=== PATIENT | male | born 1955 | race Caucasian/White ===

== ENCOUNTER 2023-05-20 11:08 | Observation (INO) | payer MEDICARE, SELFPAY ==
[2023-05-20] VITALS (25 sets, daily range): BP systolic 125–180; BP diastolic 60–99; PULSE 55–78; RESP 13–19; TEMP 36.6–36.7; O2SAT 93–99; BMI 29.2; BMI 29.8
--- NOTE | 2023-05-20 11:06 | ECG_ITS ---
APPROVED REPORT Exam: Resting ECG HR:56 bpm ECG Measurements Heart Rate 56 AXES VA 196 P 36 QRSd 84 QRS 28 QT 399 T 118 QTc 390 Conclusion SINUS BRADYCARDIA NONSPECIFIC T-WAVE ABNORMALITY ABNORMAL ECG UNCONFIRMED REPORT Electronically signed by : John Chappell MD 05/20/2023 19:37:25
--- NOTE | 2023-05-20 11:09 | PC.NURSE ---
Dr. Barraza at BS for pt eval
--- NOTE | 2023-05-20 11:11 | XR_ITS ---
FINAL REPORT CLINICAL HISTORY: CP smoker COMPARISON: None FINDINGS: A single portable view of the chest was obtained. The heart size and pulmonary vascularity are within normal limits. The mediastinum is within normal limits. No acute pulmonary abnormality is identified. The bony thorax is intact. IMPRESSION: No active cardiopulmonary disease. Reviewed, Interpreted and Dictated by Sukhwinder Alfred III, MD Transcribed by Jolie Cardona Authenticated and [facility]
--- NOTE | 2023-05-20 11:13 | HMH.EDGENADL ---
Discharge Plan Disposition Patient Disposition: Admitted Chief Complaint: Chest Pain Clinical Impressions Clinical Impression: Angina pectoris associated with type 2 diabetes mellitus Discharge ED Provider: Brian Barraza General Adult HPI General Chief complaint: Chest Pain Stated complaint: CP Time Seen by Provider: 05/20/23 11:11 History of Present Illness HPI narrative: Patient is a 67-year-old male with past medical history of hypertension, dxo-[id number] diabetes, ACS status post stenting on dual antiplatelet therapy who presents emergency department for evaluation of chest pain. Onset was acute, over the last 24 hours, waxing waning, substernal radiating up into his neck. No other acute complaints at this time. Related Data Home Medications Medication Instructions Recorded Confirmed atorvastatin 20 mg tablet (Lipitor) 20 mg PO HS 05/20/23 05/20/23 glimepiride 4 mg tablet 4 mg PO DAILY Diabetes 05/20/23 05/20/23 metformin 500 mg tablet 1,000 mg PO BID Diabetes 05/20/23 05/20/23 Allergies Allergy/AdvReac Type Severity Reaction Status Date / Time No Known Allergies Allergy Verified 05/20/23 11:09 [facility] Disclaimer: The information contained in this section may have been updated after the patient was seen, as this information can be updated by other users. Social History (Updated 05/20/23 @ 14:48 by WILDA Palma) Smoking Status: Former smoker alcohol intake: current current occupational status: employed Travel in the last 8 weeks: Inside the [place] ROS Obtained: Yes Systems reviewed as appropriate & no additional complaints except as documented Physical Exam General General appearance: alert and in no apparent distress Head Head exam: atraumatic and normocephalic Eye Eye exam: Present PERRL and EOMI ENT ENT exam: Present mucous membranes moist Neck Neck exam: Present normal inspection Chest Chest inspection: Present normal inspection and symmetric chest wall rise Respiratory Respiratory exam: Present normal lung sounds bilaterally; Absent respiratory distress Cardiovascular Cardiovascular exam: Present regular rate, normal rhythm and other (No pitting edema BLE) Abdominal Exam Abdominal exam: Present soft; Absent tenderness Extremities Exam Extremities exam: Present normal inspection Neurological Exam Neurological exam: Present alert Psychiatric Psychiatric exam: Present normal affect Skin Skin exam: Present warm and dry Medical Decision Making Tuan Inquiry Pt receiving controlled substance: No Vital Signs: 05/20/23 11:08 05/20/23 11:30 05/20/23 12:00 Temperature 97.8 F Temperature Source Oral Pulse Rate 59 L 59 L Pulse Rate [Right] 57 L Respiratory Rate 19 13 19 Blood Pressure 145/92 H 144/93 H Blood Pressure [Right Arm] 145/92 H Blood Pressure Mean Blood Pressure Mean [Right Arm] 109 Blood Pressure Source [Right Arm] Automatic Cuff 02 Sat by Pulse Oximetry 98 97 96 Oxygen Delivery Method Room Air 05/20/23 12:31 05/20/23 12:50 05/20/23 13:34 Temperature Temperature Source Pulse Rate 63 55 L Pulse Rate [Right] Respiratory Rate Blood Pressure 165/71 H 131/88 126/77 Blood Pressure [Right Arm] Blood Pressure Mean 90 Blood Pressure Mean [Right Arm] Blood Pressure Source [Right Arm] 02 Sat by Pulse Oximetry 96 96 94 L Oxygen Delivery Method Room Air 05/20/23 14:38 05/20/23 14:01 Temperature 98.0 F Temperature Source Pulse Rate 78 62 Pulse Rate [Right] Respiratory Rate 18 Blood Pressure 130/82 133/99 H Blood Pressure [Right Arm] Blood Pressure Mean 110 Blood Pressure Mean [Right Arm] Blood Pressure Source [Right Arm] 02 Sat by Pulse Oximetry 96 Oxygen Delivery Method Room Air Lab Data Lab Results 05/20/23 11:27: WBC 5.5, RBC 4.74, Hgb 14.2, Hct 43.0, MCV 90.8, MCH 30.0, MCHC 33.0, RDW 13.9, Plt Count 249, MPV 8.2, Neut % (Auto) 60.1, Lymph % (Auto) 33
--- NOTE | 2023-05-20 11:37 | PC.NURSE ---
RAD at for CXR
[2023-05-20 12:24] LABS: Basophils % 0.5 % (0.1-2.0); Eosinophils # 0.1 K/mm3 (0.0-0.4); Eosinophils % 0.8 % (0.1-12.0); Hemoglobin 14.2 g/dL (14.1-18.0); Lymphocytes # 1.9 K/mm3 (0.7-4.5); Lymphocytes % 33.8 % (10-50); Mean Corpuscular Volume 90.8 fl (80-94); Mean Platelet Volume 8.2 fl (7.4-10.4); Monocytes # 0.3 K/mm3 (0.1-1.0); Monocytes % 4.7 % (1.7-9.3); Neutrophils # 3.3 K/mm3 (1.8-7.8); Neutrophils % 60.1 % (37.0-80.0); Platelet Count 249 K/mm3 (142-424); Red Blood Count 4.74 M/mm3 (4.60-6.20); Red Cell Distribution Width 13.9 % (11.5-17.5); White Blood Count 5.5 K/mm3 (4.8-10.8)
[2023-05-20 12:31] LABS: Chloride 103 mmol/L (98-107); Potassium 3.9 mmoL/L (3.5-5.1); Sodium 135 mmol/L (136-145)
[2023-05-20 12:33] LABS: Alanine Aminotransferase 24 U/L (12-78); Aspartate Amino Transferase 29 U/L (17-59); Blood Urea Nitrogen 16 mg/dl (9-20); Creatinine Clearance Estimated 94 mL/min (50-200); Estimated Glomerular Filt Rate 112 ml/min (>60); GFR (African American) 135 ML/MIN (>60)
[2023-05-20 12:34] LABS: Albumin/Globulin Ratio 1.4 (1.1-1.8); Alkaline Phosphatase 99 U/L (38-126); Anion Gap 9.9 mEq/L (5-15); Bilirubin,Total 0.5 mg/dl (0.2-1.3); Carbon Dioxide 26 mmol/L (22.0-30.0); Globulin 2.9 g/dL (1.3-3.2); Glucose 279 mg/dl (74-100); Total Protein,Serum 6.9 g/dl (6.3-8.2)
[2023-05-20 12:53] LABS: Troponin I < 0.01 ng/ml (0.00-0.034)
--- NOTE | 2023-05-20 13:13 | PC.NURSE ---
s/w Cha @ [facility], she will let Omer ASTUDILLO know of the consult.
--- NOTE | 2023-05-20 13:52 | PC.NURSE ---
JACK GARCIA WITH CARDIOLOGY AT BEDSIDE
--- NOTE | 2023-05-20 14:15 | PC.NURSE ---
Nicole ASTUDILLO s/w Dr. Velasquez and he will cath him today.
--- NOTE | 2023-05-20 14:18 | IR_ITS ---
APPROVED REPORT Patient Location: Emergent Linting Machine Operator: ZOE Carmona RT (R) PROCEDURES Left heart catheterization Left ventriculogram Selective coronary angiogram Drug-eluting stent deployment to the proximal LAD INDICATION Unstable angina, Coronary artery disease, Informed consent was obtained prior to the procedure. COMPLICATIONS NONE Estimated Blood Loss: LESS THAN 10 ML TECHNIQUE One percent lidocaine used to anesthetize the right anterior aspect of the wrist. The right radial artery was accessed via the Seldinger technique. A 6 [place] Island[place] sheath was placed in the right radial artery. 2.5 mg of Verapamil, 800 mcg of nitroglycerin, 1mg Lidocaine and 5000 U Heparin were given through the arterial sheath. The papa catheter was also used to perform left heart catheterization, left ventriculogram and selective coronary angiogram. At the end of the procedure therapeutic Was administered giving a therapeutic ACT and the guide catheter was placed in left main artery followed by Choice PT extra-support wire. A 2.75 x 15 mm [place] frontier stent was deployed at 20 nicole reducing the critical stenosis to 0%. Although there was jailing of the first diagonal artery both the LAD and diagonal artery maintain KHRIS-3 flow at the end of the procedure. At the end the procedure the apparatus was removed the sheath was removed and hemostasis was achieved using TR banding patient was transferred to the postop holding in stable condition ANGIOGRAPHIC RESULTS The left main artery Has an ostial 20% stenosis and a distal 20% stenosis The left anterior descending artery Has an ostial 30% stenosis followed by a concentric 90% stenosis immediately proximal to the first diagonal artery there are additional 30% mid vessel stenoses with a 40% stenosis distal to the second diagonal artery The circumflex artery Is nondominant yet still large and has diffuse 20 to 30% stenoses The right coronary artery Is a large dominant vessel and has proximal 30% stenoses mid vessel 20% stenoses distal 30% stenoses The MONTEZ ventriculogram reveals Normal 65% The left ventricular end-diastolic pressure 10 to 15 mmHg IMPRESSION Critical proximal LAD disease as described above Successful stenting the proximal ID critical disease reduced to 0% with 1 drug-eluting stent Diffuse mild to moderate disease as described above Normal ejection fraction Normal left ventricular end-diastolic pressure PLAN 1. Effient 10 mg daily plus aspirin 81 mg daily 2. LDL less than 55 to be achieved with high intensity statin 3. Avoidance of tobacco product 4. Risk factor modification 5. Cardiac rehabilitation Electronically signed by : Asad Velasquez MD 05/20/2023 15:13:54
--- NOTE | 2023-05-20 14:26 | PC.NURSE ---
pt was in a gown but having pt take pants, underwear and shoes was unable to shave bc valentino from inc[employer]ator plant laborer was here to take pt but aware pt was not shaved
--- NOTE | 2023-05-20 14:27 | PC.NURSE ---
[facility] [employer] Charge Hand here to get pt for heart cath, taken via wheelchair, with going to waiting room for laboratory director
--- NOTE | 2023-05-20 14:29 | PC.NURSE ---
Dr. Barraza s/w Dr. Carvajal for admission
--- NOTE | 2023-05-20 14:35 | PC.NURSE ---
CARE MANAGEMENT NOTIFIED OF ADMISSION
--- NOTE | 2023-05-20 14:37 | EXP.CARD.CON ---
History of Present Illness History of Present Illness Consult date: 05/20/23 Requesting physician: Gopi Carvajal Consult reason: chest pain Chief complaint: Angina pectoris Additional Medical History:: 1. CAD A. History of pericarditis, age 20 B. NV with subsequent stenting, 2019 2. Diabetes mellitus 3. Elevated blood pressure 4. Hyperlipidemia History of present illness: 67-year-old male presented to the emergency department for complaint of chest heaviness and pressure with radiation into the neck over the last 2 months that has progressively gotten worse. Symptoms have begun to limit his activity. He also describes the feeling as if an elephant is sitting on his chest. This is similar to what he felt 3 years ago when he had an NV and subsequent coronary stenting. He has not had any further cardiac follow-up since then. He does continue to take an aspirin but is not on any beta-godfrey or statin therapy. EKG today shows sinus rhythm with nonspecific ST-T abnormalities in the inferolateral leads. Initial troponin is normal [facility] Disclaimer: The information contained in this section may have been updated after the patient was seen, as this information can be updated by other users. Social History Smoking Status: Former smoker alcohol intake: current current occupational status: employed Travel in the last 8 weeks: Inside the [place] Review of Systems Review of Systems Review of systems:: pertinent systems reviewed and negative unless documented below *Cardiovascular Cardiovascular: Reports chest pain and Reports dyspnea on exertion *Respiratory Respiratory: Reports dyspnea on exertion Exam Data for Last 24 hours Vital signs and Labs for Last 24 Hours: Temp Pulse Resp BP Pulse Ox O2 Del Method 97.8 F 55 L 19 126/77 94 L Room Air 05/20/23 11:08 05/20/23 12:50 05/20/23 12:00 05/20/23 13:34 05/20/23 13:34 05/20/23 13:34 Laboratory Results - last 24 hr 05/20/23 11:27: WBC 5.5, RBC 4.74, Hgb 14.2, Hct 43.0, MCV 90.8, MCH 30.0, MCHC 33.0, RDW 13.9, Plt Count 249, MPV 8.2, Neut % (Auto) 60.1, Lymph % (Auto) 33.8, [place] % (Auto) 4.7, Eos % (Auto) 0.8, Baso % (Auto) 0.5, Neut # (Auto) 3.3, Lymph # (Auto) 1.9, [place] # (Auto) 0.3, Eos # (Auto) 0.1, Baso # (Auto) 0.0, Sodium 135 L, Potassium 3.9, Chloride 103, Carbon Dioxide 26, Anion Gap 9.9, BUN 16, Creatinine 0.70, Estimated Creat Clear 94, Estimated GFR 112, Est GFR ( Amer) 135, Glucose 279 H, Calcium 9.0, Total Bilirubin 0.5, AST 29, ALT 24, Alkaline Phosphatase 99, Troponin I < 0.01, Total Protein 6.9, Albumin 4.0, Globulin 2.9, Albumin/Globulin Ratio 1.4 I & O for Last 24 hours: Intake & Output 05/18/23 05/19/23 05/20/23 05/21/23 11:59 11:59 11:59 11:59 Weight 210 lb Constitutional Constitutional: no acute distress *Routine Respiratory Exam Respiratory: Present CTA bilaterally *Routine Cardiovascular Exam Cardiovascular: Present RRR and murmur; Absent gallop or rubs *Routine Extremities Exam Extremities: Absent cyanosis, clubbing or edema *Routine Neurological Exam Neurological: Present alert, oriented X3 and CN II-XII intact Meds Home Medications and Allergies Home Medications Medication Instructions Recorded Confirmed Type atorvastatin 20 mg tablet (Lipitor) 20 mg PO HS 05/20/23 05/20/23 History glimepiride 4 mg tablet 4 mg PO DAILY Diabetes 05/20/23 05/20/23 History metformin 500 mg tablet 1,000 mg PO BID Diabetes 05/20/23 05/20/23 History New Prescriptions to Start Prescriptions: Allergies Allergy/AdvReac Type Severity Reaction Status Date / Time No Known Allergies Allergy Verified 05/20/23 11:09 Assessment and Plan *Assessment and plan (1) Angina pectoris associated with type 2 diabetes mellitus: Status: Acute Category: Medical Code(s): E11.59 - Type 2 diabetes mellitus with other circulatory complications; I20.9 - Angina pectoris, unspecified (2) Di
[2023-05-20 15:01] LABS: Chol/HDL Ratio 6.3 (1-3.5); Cholesterol 245 mg/dl (140-200); HDL Cholesterol 39 mg/dl (40-60); Triglycerides 302 mg/dl (30-150); VLDL Cholesterol 60 mg/dL (0-40)
--- NOTE | 2023-05-20 15:13 | HMH.PHAINT1 ---
Pharmacy Intervention Comments: MEDICATION RECONCILIATION COMPLETED ON PATIENT USING EXTERNAL FILL HISTORY FROM PHARMACY AND LIST FROM CARDIOLOGY OFFICE. -GIRMA TORRES, JOSEED
[2023-05-20 15:18] LABS: CATHL Activated Clotting Time 220 SEC (74-125)
--- NOTE | 2023-05-20 15:45 | PC.NURSE ---
arrived to floor by stretcher from public works laborer at 15:32
--- NOTE | 2023-05-20 15:52 | EXP.HP ---
History of Present Illness *Admission Date: 05/20/23 *Reason for visit:: chest pain *History of present illness: Mr. Wright is a 67-year-old male with history of diabetes, previous AK with 2 stents, who presents with worsening dyspnea with exertion over the past few weeks. Symptoms became acutely worse with development of chest pain over the past 24 to 48 hours. Radiating to his back. In the ER, chest x-ray was unremarkable. EKG with no ST elevation. Serial troponin negative. However given the unstable character of his chest pain, history of CAD, cardiology recommended evaluation. In the setting of high risk chest pain, cardiology recommended left heart cath. Patient was taken to the Card Cutter Helper where critical proximal LAD disease was identified and intervened upon. Patient has remained on room air. Medicine consulted for admission. Taken to [facility] with the following findings: IMPRESSION Critical proximal LAD disease. Successful stenting the proximal LAD critical disease reduced to 0% with 1 drug-eluting stent. Diffuse mild to moderate disease as described above Normal ejection fraction Normal left ventricular end-diastolic pressure After arrival to the floor, patient states he feels better. Denies any pain or shortness of breath. Is just fatigued at this time. Family at bedside and updated of plan. [facility] Disclaimer: The information contained in this section may have been updated after the patient was seen, as this information can be updated by other users. Medical History Diabetes mellitus, type 2 Hyperlipidemia Hypertension Family History No significant family history Social History Smoking Status: Current every day smoker alcohol intake: current current occupational status: employed Travel in the last 8 weeks: [place] the [place] Review of Systems Review of Systems Review of systems (narrative): 14 point review of systems performed, pertinent positives and negatives as per HPI Meds Home Medications and Allergies Home Medications Medication Instructions Recorded Confirmed Type aspirin 81 mg chewable tablet 81 mg PO DAILY Heart Health 05/20/23 05/20/23 History glimepiride 4 mg tablet 4 mg PO DAILY Diabetes 05/20/23 05/20/23 History metformin 500 mg tablet 1,000 mg PO BID Diabetes 05/20/23 05/20/23 History New Prescriptions to Start Prescriptions: Allergies Allergy/AdvReac Type Severity Reaction Status Date / Time No Known Allergies Allergy Verified 05/20/23 15:48 Exam Data for Last 24 hours Vital signs and Labs for Last 24 Hours: Temp Pulse Resp BP Pulse Ox O2 Del Method 98.0 F 60 18 144/81 H 95 Room Air 05/20/23 14:38 05/20/23 15:29 05/20/23 15:29 05/20/23 15:29 05/20/23 15:29 05/20/23 15:25 Laboratory Results - last 24 hr 05/20/23 11:27: WBC 5.5, RBC 4.74, Hgb 14.2, Hct 43.0, MCV 90.8, MCH 30.0, MCHC 33.0, RDW 13.9, Plt Count 249, MPV 8.2, Neut % (Auto) 60.1, Lymph % (Auto) 33.8, [place] % (Auto) 4.7, Eos % (Auto) 0.8, Baso % (Auto) 0.5, Neut # (Auto) 3.3, Lymph # (Auto) 1.9, [place] # (Auto) 0.3, Eos # (Auto) 0.1, Baso # (Auto) 0.0, Sodium 135 L, Potassium 3.9, Chloride 103, Carbon Dioxide 26, Anion Gap 9.9, BUN 16, Creatinine 0.70, Estimated Creat Clear 94, Estimated GFR 112, Est GFR ( Amer) 135, Glucose 279 H, Calcium 9.0, Total Bilirubin 0.5, AST 29, ALT 24, Alkaline Phosphatase 99, Troponin I < 0.01, Total Protein 6.9, Albumin 4.0, Globulin 2.9, Albumin/Globulin Ratio 1.4, Triglycerides 302 H, Cholesterol 245 H, VLDL Cholesterol 60 H, HDL Cholesterol 39 L, Cholesterol/HDL Ratio 6.3 H 05/20/23 14:45: Activated Clotting Time 220 H* I & O for Last 24 hours: Intake & Output 05/17/23 05/18/23 05/19/23 05/20/23 23:59 23:59 23:59 23:59 Weight 91.654 kg Constitutional Constitutional: no acute dis
[2023-05-20 16:07] LABS: Hemoglobin A1C 8.6 % (4.0-6.0)
[2023-05-20 16:59] LABS: POC Glucose,Bedside 274 (70-110)
[2023-05-20 20:48] LABS: POC Glucose,Bedside 271 (70-110)
[2023-05-21] VITALS: BP 142/79; PULSE 60; RESP 18; TEMP 37.2; O2SAT 97
[2023-05-21 04:00] VITALS: BP 135/80; PULSE 70; RESP 16; TEMP 36.9; O2SAT 97; BMI 30.7
[2023-05-21 06:01] LABS: POC Glucose,Bedside 245 (70-110)
--- NOTE | 2023-05-21 06:13 | PC.NURSE ---
Patient rested well this shift. Vitals WNL, right radial dressing clean dry and intact. No complaints this shift. Call green and personal items in reach. POC ongoing.
[2023-05-21 06:35] LABS: Basophils % 0.4 % (0.1-2.0); Eosinophils # 0.1 K/mm3 (0.0-0.4); Eosinophils % 0.7 % (0.1-12.0); Hemoglobin 13.8 g/dL (14.1-18.0); Lymphocytes # 2.1 K/mm3 (0.7-4.5); Lymphocytes % 32.1 % (10-50); Mean Corpuscular HGB Conc 32.2 g/dL (31.8-35.4); Mean Corpuscular Hemoglobin 29.8 pg (27.0-31.2); Mean Corpuscular Volume 92.6 fl (80-94); Mean Platelet Volume 8.1 fl (7.4-10.4); Monocytes # 0.3 K/mm3 (0.1-1.0); Monocytes % 4.9 % (1.7-9.3); Neutrophils # 4.1 K/mm3 (1.8-7.8); Neutrophils % 61.9 % (37.0-80.0); Platelet Count 222 K/mm3 (142-424); Red Blood Count 4.64 M/mm3 (4.60-6.20); Red Cell Distribution Width 13.9 % (11.5-17.5); White Blood Count 6.6 K/mm3 (4.8-10.8)
[2023-05-21 06:46] LABS: Chloride 104 mmol/L (98-107)
[2023-05-21 06:47] LABS: Potassium 4.3 mmoL/L (3.5-5.1); Sodium 136 mmol/L (136-145)
[2023-05-21 06:49] LABS: Alanine Aminotransferase 22 U/L (12-78); Alkaline Phosphatase 80 U/L (38-126); Anion Gap 10.3 mEq/L (5-15); Aspartate Amino Transferase 25 U/L (17-59); Bilirubin,Total 0.4 mg/dl (0.2-1.3); Blood Urea Nitrogen 13 mg/dl (9-20); Carbon Dioxide 26 mmol/L (22.0-30.0); Creatinine Clearance Estimated 93 mL/min (50-200); Estimated Glomerular Filt Rate 96 ml/min (>60); GFR (African American) 116 ML/MIN (>60)
[2023-05-21 06:50] LABS: Albumin Level 3.5 g/dl (3.5-5.0); Albumin/Globulin Ratio 1.4 (1.1-1.8); Calcium 8.7 mg/dl (8.4-10.2); Globulin 2.5 g/dL (1.3-3.2); Glucose 228 mg/dl (74-100); Magnesium 1.7 mg/dl (1.6-2.3)
--- NOTE | 2023-05-21 07:39 | EXP.CARD.PN ---
Subjective Subjective Date: 05/21/23 Time: 07:39 Principal diagnosis: Unstable angina Interval history: 67 yo male in bed in NAD. Feels great. Discussed lifestyle changes/dietary changes. Exam Data for Last 24 hours Vital signs and Labs for Last 24 Hours: Temp Pulse Resp BP Pulse Ox O2 Del Method 98.5 F 70 16 135/80 97 Room Air 05/21/23 04:00 05/21/23 04:00 05/21/23 04:00 05/21/23 04:00 05/21/23 04:00 05/21/23 07:00 Laboratory Results - last 24 hr 05/20/23 11:27: WBC 5.5, RBC 4.74, Hgb 14.2, Hct 43.0, MCV 90.8, MCH 30.0, MCHC 33.0, RDW 13.9, Plt Count 249, MPV 8.2, Neut % (Auto) 60.1, Lymph % (Auto) 33.8, [place] % (Auto) 4.7, Eos % (Auto) 0.8, Baso % (Auto) 0.5, Neut # (Auto) 3.3, Lymph # (Auto) 1.9, [place] # (Auto) 0.3, Eos # (Auto) 0.1, Baso # (Auto) 0.0, Sodium 135 L, Potassium 3.9, Chloride 103, Carbon Dioxide 26, Anion Gap 9.9, BUN 16, Creatinine 0.70, Estimated Creat Clear 94, Estimated GFR 112, Est GFR ( Amer) 135, Glucose 279 H, Hemoglobin A1c 8.6 H, Calcium 9.0, Total Bilirubin 0.5, AST 29, ALT 24, Alkaline Phosphatase 99, Troponin I < 0.01, Total Protein 6.9, Albumin 4.0, Globulin 2.9, Albumin/Globulin Ratio 1.4, Triglycerides 302 H, Cholesterol 245 H, LDL Cholesterol Direct 139.40 H, VLDL Cholesterol 60 H, HDL Cholesterol 39 L, Cholesterol/HDL Ratio 6.3 H 05/20/23 14:45: Activated Clotting Time 220 H* 05/20/23 16:50: POC Glucose 274 H 05/20/23 20:37: POC Glucose 271 H 05/21/23 05:30: WBC 6.6, RBC 4.64, Hgb 13.8 L, Hct 43.0, MCV 92.6, MCH 29.8, MCHC 32.2, RDW 13.9, Plt Count 222, MPV 8.1, Neut % (Auto) 61.9, Lymph % (Auto) 32.1, [place] % (Auto) 4.9, Eos % (Auto) 0.7, Baso % (Auto) 0.4, Neut # (Auto) 4.1, Lymph # (Auto) 2.1, [place] # (Auto) 0.3, Eos # (Auto) 0.1, Baso # (Auto) 0.0, Sodium 136, Potassium 4.3, Chloride 104, Carbon Dioxide 26, Anion Gap 10.3, BUN 13, Creatinine 0.80, Estimated Creat Clear 93, Estimated GFR 96, Est GFR ( Amer) 116, Glucose 228 H, Calcium 8.7, Magnesium 1.7, Total Bilirubin 0.4, AST 25, ALT 22, Alkaline Phosphatase 80, Total Protein 6.0 L, Albumin 3.5 D, Globulin 2.5, Albumin/Globulin Ratio 1.4 05/21/23 05:54: POC Glucose 245 H I & O for Last 24 hours: Intake & Output 05/18/23 05/19/23 05/20/23 05/21/23 11:59 11:59 11:59 11:59 Intake Total 240 / 240 Output Total 100 / 100 Balance 140 / 140 Weight 210 lb 207 lb 3 oz Constitutional Constitutional: no acute distress *Routine Respiratory Exam Respiratory: Present CTA bilaterally *Routine Cardiovascular Exam Cardiovascular: Present RRR and murmur *Routine Extremities Exam Extremities: Absent edema *Routine Neurological Exam Neurological: Present alert and oriented X3 Progress Note: A&P Assessment and plan (1) Unstable angina: Status: Acute (2) CAD (coronary artery disease): Status: Acute (3) Angina pectoris associated with type 2 diabetes mellitus: Status: Acute (4) Hyperlipidemia associated with type 2 diabetes mellitus: Status: Chronic (5) Diabetes mellitus: Status: Chronic (6) History of DC (myocardial infarction): Status: Chronic (7) History of coronary angioplasty with insertion of stent: Status: Acute Assessment and Plan Assessment and Plan for All Diagnoses:: 1. Angina pectoris in a high risk patient with prior DC, coronary stenting and type 2 diabetes mellitus [facility] with subsequent ADAM to LAD DAPT with ASA and Effient Echo pending 2. Elevated blood pressure BP improved. Hold TIM or BB for now. Monitor at home. 3. Diabetes mellitus Defer to Dr. Alena Robles started 4. Hyperlipidemia LDL 139 Atorvastatin 40 mg daily started OK for discharge home. Home med recommendations: ASA 81 mg daily Effient 10 mg daily Atorvastatin 40 mg daily Jardiance 10 mg daily Hold on TIM or BB at this time (BP improved and pt has tendency to stop meds due to side effects) Follow up one week.
[2023-05-21 07:53] VITALS: BP 137/82; PULSE 63; RESP 17; TEMP 37.1; O2SAT 96
--- NOTE | 2023-05-21 09:32 | EXP.DC.SUM ---
General Admission date:: 05/20/23 Discharge date: 05/21/23 HPI HPI HPI: Mr. Wright is a 67-year-old male with history of diabetes, previous ID with 2 stents, who presents with worsening dyspnea with exertion over the past few weeks. Symptoms became acutely worse with development of chest pain over the past 24 to 48 hours. Radiating to his back. In the ER, chest x-ray was unremarkable. EKG with no ST elevation. Serial troponin negative. However given the unstable character of his chest pain, history of CAD, cardiology recommended evaluation. In the setting of high risk chest pain, cardiology recommended left heart cath. Patient was taken to the [facility] where critical proximal LAD disease was identified and intervened upon. Patient has remained on room air. Medicine consulted for admission. Taken to [facility] with the following findings: IMPRESSION Critical proximal LAD disease. Successful stenting the proximal LAD critical disease reduced to 0% with 1 drug-eluting stent. Diffuse mild to moderate disease as described above Normal ejection fraction Normal left ventricular end-diastolic pressure After arrival to the floor, patient states he feels better. Denies any pain or shortness of breath. Is just fatigued at this time. Family at bedside and updated of plan. Hospital Course Hospital Course Hospital Course: The patient presented to the ED with chest pain. He was taken to the [facility] and underwent left heart catheterization identifying critical proximal LAD disease with successful stenting 1 drug-eluting stent. He was kept overnight and identified no further chest pain. Nursing staff identified that he remained afebrile with stable vital signs and saturated appropriately on room air. His labs were trended and identified normal CBC and BMP. His A1c 8.6% identified uncontrolled diabetes. He received education concerning routine blood sugar and blood pressure monitoring. With his identified improvement he inquired about discharge home. 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 I spent 35 minutes in [id number] time with the patient and nursing staff concerning the discharge process. We discussed the admitting diagnoses and hospital course. We discussed identified improvement and the patient's desire to be discharged. We reviewed inpatient studies and imaging. The patient voiced understanding on the importance of follow-up with his primary care provider and specialist(s). The patient plans to be compliant with the medication regimen prescribed and follow-up appointments. He understands that he can return to the emergency department with any sudden changes or concerns. Exam Data for Last 24 hours Vital signs and Labs for Last 24 Hours: Temp Pulse Resp BP Pulse Ox O2 Del Method 98.7 F 63 17 137/82 96 Room Air 05/21/23 07:53 05/21/23 07:53 05/21/23 07:53 05/21/23 07:53 05/21/23 07:53 05/21/23 08:00 Laboratory Results - last 24 hr 05/20/23 11:27: WBC 5.5, RBC 4.74, Hgb 14.2, Hct 43.0, MCV 90.8, MCH 30.0, MCHC 33.0, RDW 13.9, Plt Count 249, MPV 8.2, Neut % (Auto) 60.1, Lymph % (Auto) 33.8, Garrett % (Auto) 4.7, Eos % (Auto) 0.8, Baso % (Auto) 0.5, Neut # (Auto) 3.3, Lymph # (Auto) 1.9, Garrett # (Auto) 0.3, Eos # (Auto) 0.1, Baso # (Auto) 0.0, Sodium 135 L, Potassium 3.9, Chloride 103, Carbon Dioxide 26, Anion Gap 9.9, BUN 16, Creatinine 0.70, Estimated Creat Clear 94, Estimated GFR 112, Est GFR ( Amer) 135, Glucose 279 H, Hemoglobin A1c 8.6 H, Calcium 9.0, Total Bilirubin 0.5, AST 29, ALT 24, Alkaline Phosphatase 99, Troponin I < 0.01, Total Protein 6.9, Albumin 4.0, Globulin 2.9, Albumin/Globulin Ratio 1.4, Triglycerides 302 H, Cholesterol 245 H, LDL Cholesterol Direct 139.40 H, VLDL Cholesterol 60 H, HDL Cholesterol 39 L, Cholesterol/HDL Ratio 6.3 H 05/20/23 14:45: Activated Clotting Time 220 H* 05/20/23 16:50: POC Glucose 274 H 05/20/23 20:37: POC Glucose 271 H 05/21/23 05:30: WBC 6.6, R
--- NOTE | 2023-05-21 10:32 | P.CONPHA_ITS ---
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
--- NOTE | 2023-05-21 10:44 | CARE MANAGER ---
Addendum entered by Sangeeta Flores RN 05/21/23 10:48: Patient's nurse called and stated the patient and request someone to speak with them about financial assistance. Contacted Margarita Kumar in billing and she is going to talk to patient. Original Note: Spoke with patient regarding observation status. Patient states that he only has Medicare part A. We discussed how that does not cover Observation status. Explained to patient the difference between being admitted inpatient versus observation and that he did not meet the guidelines to meet inpatient criteria. Patient became very angry. Patient blamed this career portals teacher. Asked patient to understand that we are going by Medicare guidelines. Offered to have financial registered representative come speak to patient. Patient refuses and states he is just going to leave. Explained that he should wait until he is discharged to leave and that the financial counselor may be able to help get him qualified for Medicaid or some type of assistance. Patient continues to refuse. He also refuses to sign the Medicare Outpatient Observation Notice.
--- NOTE | 2023-05-24 16:19 | CARE MANAGER ---
Unable to reach patient via phone to discuss recent discharge. Not able to leave VM, as it was full.
== END 2023-05-21 11:15 | disposition home or self-care (01) ==
LOC: ER 12:59 → CATHLAB 14:44 → 2ND 15:42
PROVIDERS: Internal Medicine; Physician Assistant; Admitting Provider Internal Medicine Adolescent Medicine; Emergency Provider Emergency Medicine; PCP Family Medicine; Visit Provider Internal Medicine Adolescent Medicine
DX: I25.110 Atherosclerotic heart disease of native coronary artery with unstable angina pectoris; E11.59 Type 2 diabetes mellitus with other circulatory complications; E78.5 Hyperlipidemia, unspecified; I25.2 Old myocardial infarction; Z95.5 Presence of coronary angioplasty implant and graft; I10 Essential (primary) hypertension; Z79.02 Long term (current) use of antithrombotics/antiplatelets; Z79.84 Long term (current) use of oral hypoglycemic drugs; F17.210 Nicotine dependence, cigarettes, uncomplicated; Z79.899 Other long term (current) drug therapy
CPT/HCPCS: 36415; 71045; 80053; 80061; 82962; 83036; 83735; 84484; 85025; 85347; 92928; 93005; 93306; 93458; 99152; 99153; 99285; C1725; C1760; C1769; C1876; C9600; G0378; J1644; Q9967

== ENCOUNTER 2024-01-03 06:45 | Outpatient (CLI) | payer MEDICARE, SELFPAY ==
--- NOTE | 2024-01-03 | CA_ITS ---
APPROVED REPORT Exam: Exercise Treadmill Technologist: Divine Aguilar, Ht: 5 ft 9 in Wt: 195 lbs BSA: 2.04 m2 HR: 52 bpm BP: 177/95 mmHg Rhythm: sinus lashell, early repolarization changes old inferior [place] Medical History Medications: Aspirin,,,,, Metformin,,,,, Glimepiride,,,,, JaRDiance,,,,, Atorvastastin,,,,, Cardiac Risk Factors: HTN, Hyperlipidemia, Diabetes (non-insulin), Smoking Stress Test Details Test: Yan HR Resting HR: 55 bpm Max Heart Rate (APMHR): 150 bpm Max HR Achieved: 181 bpm Target HR (85% APMHR): 128 bpm % of APMHR: 121 Recovery HR: 122 bpm HR response to stress: Normal HR response to stress BP Resting BP: 168.0/94 mmHg Max BP: 233/102 mmHg Recovery BP: 233.0/102.0 mmHg BP response to stress: Abnormal hypertensive response to stress. ECG Resting ECG: sinus bradycardia, early repolarization changes, old inferior [place] Stress EC mm horizontal ST depression Arrhythmia: PVC Recovery ECG: Return to baseline within 3 minutes of recovery Recovery Arrhythmia: None Clinical Exercise duration: 10:16 min Highest Stage Achieved: Exercise capacity: 12.8 METs Overall Exercise Capacity for Age: Good Stress ECG Conclusion The patient was able to exercise for a total of 10 minutes, 16 seconds. He achieved a total of 12.8 METs. He has good exercise capacity compared to age and sex matched peers. He has normal HR, but exaggerated hypertensive BP, response to exercise. Exercise stopped due to generalized fatigue and elevated BP. No chest pain. Ectopy: occasional PVCs ST changes: [address] depression Conclusion: Good exercise capacity Hypertensive BP response to exercise EKG changes postive for ischemia at peak stress Myoview images reported separately Test Summary REST . . . . . . . Sitting Sitting REST . . . . . . . Standing REST . . . . . . . Standing REST 12:52 0.0 0.0 55 . 168/ 94 . . Stage 1 01:00 10.0 1.7 91 . . . . Stage 1 02:00 10.0 1.7 103 . . . . Stage 1 03:00 10.0 1.7 99 . . . . Stage 2 01:00 12.0 2.5 106 . 174/ 92 . . Stage 2 02:00 12.0 2.5 109 . 174/ 92 . . Stage 2 03:00 12.0 2.5 111 . 174/ 92 . . Stage 3 01:00 14.0 3.4 122 . . . . Stage 3 02:00 14.0 3.4 131 . . . . Stage 3 03:00 14.0 3.4 131 . . . . Stage 4 01:00 16.0 4.2 150 . . . . Stage 4 01:16 16.0 4.2 155 . . . Stop exercise at 10:16 RECOVERY 01:00 0.0 0.0 132 . . . . RECOVERY 02:00 0.0 0.0 106 . . . . RECOVERY 03:00 0.0 0.0 97 . 233/102 . . RECOVERY 04:00 0.0 0.0 91 . 200/ 95 . . RECOVERY 05:00 0.0 0.0 93 . 200/ 95 . . RECOVERY 06:00 0.0 0.0 88 . 192/ 91 . . RECOVERY 07:00 0.0 0.0 90 . 182/ 95 . . RECOVERY 08:00 0.0 0.0 92 . 182/ 95 . . RECOVERY 09:00 0.0 0.0 93 . 182/ 95 . . RECOVERY 10:00 0.0 0.0 86 . 182/ 95 . . RECOVERY 11:00 0.0 0.0 92 . 180/ 93 . . RECOVERY 12:00 0.0 0.0 91 . 180/ 93 . . RECOVERY 13:00 0.0 0.0 86 . 180/ 93 . . RECOVERY 13:22 0.0 0.0 87 . 163/ 87 . . Electronically signed by : Linda Mittal MD 01/05/2024 23:59:06
--- NOTE | 2024-01-03 06:54 | NM_ITS ---
APPROVED REPORT Exam: Nuclear Stress Test Indication: cp/cad Patient Location: Outpatient Stress Tech: Divine BRADLEY Tech:ZOE Lou RT(R)(N) Ht: 5 ft 9 in Wt: 188 lbs HR: 55 bpm BP: 168/94 mmHg BSA: 2.01 m2 Rhythm: NSR TID: 1.33 BMI: 27.7 History: cp/cad Procedure: Patient exercised on Yan protocol 10:16 minutes and sec, resting heart rate 55 bpm, resting blood pressure 168/94 mmHg, with exercise maximum heart rate achived was 181 bpm which is 121 % of the maximum predicted heart rate and blood pressure was 233/102 mmHg. Test was stopped due to fatigue. Patient denied any complaint of chest pain. Patient has good exercise capacity, achieved 12.8 METs of workload on treadmill, the blood pressure response to exercise was exaggerated. Cardiac Stress and Resting SPECT Images: Cardiac Stress and Resting SPECT images were obtained using technetium 99m Myoview 31.0 mCi stress and 10.81 mCi at rest. Resting and stress imaging since in supine and prone positions demonstrate a medium sized, moderate, predominantly fixed perfusion defect in the basal to mid inferior LV wall. There is minimal reversibility in the surrounding region. There is also increased transient ischemic dilatation ratio (TID 1.33), suggestive of possible multivessel disease or balanced ischemia. Gated imaging demonstrates mildly reduced LV systolic function. There is moderate hypokinesis of the basal inferior wall. LVEF is calculated at 46%. Conclusion: Medium sized, moderate, predominantly fixed perfusion defect in the basal to mid inferior LV wall. There is minimal reversibility in the surrounding region. Increased transient ischemic dilatation ratio (TID 1.33), suggestive of possible multivessel disease or balanced ischemia. Gated imaging demonstrates mildly reduced LV systolic function. There is moderate hypokinesis of the basal inferior wall. LVEF is calculated at 46%. Of note, the patient's BP is markedly elevated at peak stress with an exaggerated hypertensive BP response to exercise. BP control is recommended. Electronically signed by : Linda Mittal MD 01/06/2024 00:03:30
--- NOTE | 2024-01-03 08:59 | CA_ITS ---
APPROVED REPORT EXAM: Comprehensive 2D, Doppler, and color-flow Echocardiogram Clinical Services Specialist: Mily Casper RT(R) Ht: 5 ft 9 in Wt: 195lbs BSA: 2.04 BP: 146/86 mmHg Indications: CP, smoker, DM, CAD, pre op colonoscopy, hx NV 2D Dimensions LVEF (Yip's) 48.90 % M: 52 - 72 LV Volume 103.80 mL M: 62 - 150 LV Volume Index 50.6 mL/m2 M: 34 - 74 LA Volume 46.80 mL LA Volume Index 22.83 mL/m2 (M/F) 16-34 EF AP4 55.50 % EF AP2 48.2 % EF BP 48.9 % GL Strain -13.4 % M-Mode Dimensions RVDd 2.47 cm (0.9-2.6) LA Diam 3.80 cm (1.9-4.0) LVDd 4.77 cm (3.5-5.7) LVDs 3.71 cm (3.5-5.7) IVSd 1.09 cm (0.6-1.1) PWd 0.71 cm (0.6-1.1) EF (Teich) 44.80% FS 22.20% EDV (Teich) 106.00 mL ESV (Teich) 58.50 mL LV Diastology E Decel Time 150 (160-240 msec) E/A Ratio 0.8 Aortic Valve EMRE Index 1.58 cm2/m2 AoV Peak Varinder. 123.0 (50-130 cm/s) AO Peak GR. 6.00 mmHg AO Mean GR. 3.00 (<5 mmHg) AO VTI 22.1 (18-25 cm) EMRE (VTI) 3.30 (2.5-4.5 cm2) Mitral Valve MV E Max Varinder. 76.0 (40-130 cm/s) MV A Velocity 90.0 (40-130 cm/s) E/A Ratio 0.84 MV PHT 44.0 ms Tricuspid Valve TR P. Velocity 175.00 cm/s RAP Estimate 10.00 mmHg RVSP 22.20 mmHg Left Ventricle The left ventricle is normal size. The left ventricular systolic function is normal. The left ventricular ejection fraction is within the normal range. There is increased LV wall thickness. There is normal LV segmental wall motion. Transmitral Doppler flow pattern suggests impaired LV relaxation. LVEF is 55%. Right Ventricle The right ventricle is normal size. The right ventricular systolic function is normal. Atria The left atrium size is normal. The right atrium size is normal. There is no Doppler evidence of interatrial shunt. Aortic Valve The aortic valve is mildly thickened. Mild aortic regurgitation. Aortic sclerosis, but no evidence of aortic stenosis. Mitral Valve The mitral valve leaflets are mildly thickened. No evidence of mitral valve stenosis. Trace mitral regurgitation. Tricuspid Valve The tricuspid valve leaflets are thin and pliable. Trace tricuspid regurgitation. RVSP is 15-20 mmHg. Pulmonic Valve The pulmonary valve is normal in structure. Trace pulmonic regurgitation. Great Vessels The aortic root is normal in size. The ascending aorta is not well-visualized. IVC is normal in size and collapses >50% with inspiration. Pericardium There is no pericardial effusion. Other Information Study Quality: Fair Conclusion Normal biventricular systolic function. Aortic sclerosis, but no evidence of aortic stenosis. Mild AI. Electronically signed by : Linda Mittal MD 01/07/2024 12:57:28
[2024-01-03] MEDS: ISOTOPE MYOVIEW (PER STUDY) 1 DOSE IV (09:42)
[2024-01-03] MEDS: SODIUM CHLORIDE 0.9% 10ML SYR (RAD ONLY) 10 ML IV ×2 (09:43)
== END 2024-01-03 23:59 | disposition home or self-care (01) ==
LOC: RAD 06:48
PROVIDERS: PCP Family Medicine; Visit Provider Nurse Practitioner
DX: I25.10 Atherosclerotic heart disease of native coronary artery without angina pectoris (principal); I25.2 Old myocardial infarction; E11.69 Type 2 diabetes mellitus with other specified complication; E78.5 Hyperlipidemia, unspecified; R07.9 Chest pain, unspecified; Z79.84 Long term (current) use of oral hypoglycemic drugs; R94.31 Abnormal electrocardiogram [ECG] [EKG]
CPT/HCPCS: 78452; 93017; 93018; 93306; A9502

== ENCOUNTER 2024-01-13 08:17 | Day surgery (SDC) | payer MEDICARE, SELFPAY ==
[2024-01-13] VITALS (12 sets, daily range): BP systolic 130–168; BP diastolic 71–103; PULSE 71–91; RESP 14–18; TEMP 36.6; O2SAT 93–98; BMI 28.9
--- NOTE | 2024-01-13 07:08 | IR_ITS ---
APPROVED REPORT Patient Location: Outpatient Batch Unit Treater: ZOE Carlson RT (R) PROCEDURES Left heart catheterization Left ventriculogram Selective coronary angiogram Intravascular ultrasound to the LAD Drug-eluting stent deployment to the mid LAD INDICATION Coronary artery disease, Abnormal Myoview, Angiographic ambiguity with history of stents to the mid LAD, MLA of 2.2 mm??? in the mid LAD, Informed consent was obtained prior to the procedure. COMPLICATIONS NONE Estimated Blood Loss: LESS THAN 10 ML TECHNIQUE One percent lidocaine used to anesthetize the right anterior aspect of the wrist. The right radial artery was accessed via the Seldinger technique. A 6 Tongan sheath was placed in the right radial artery. 2.5 mg of Verapamil, 800 mcg of nitroglycerin, 1mg Lidocaine and 5000 U Heparin were given through the arterial sheath. The papa catheter and EBU 4 guide catheter were also used to perform left heart catheterization, left ventriculogram and selective coronary angiogram. At the end of the diagnostic angiogram therapeutic heparin was administered giving a therapeutic ACT and the EBU guide catheter was placed in left main artery followed by Choice PT extra-support wire placed on the LAD. An intravascular ultrasound probe was advanced which demonstrated the ostium of the LAD was widely patent with an MLA greater than 6 mm???. Distal to the mid LAD stent there was angiographic mild yet IVUS severe atherosclerotic plaque with an MLA of 2.2 mm???. Because of this a 2.75 x 26 mm [place] frontier stent was deployed at 20 nicole reducing the stenosis to 0%. KHRIS-3 flow was present before and after the procedure. At the end the procedure the apparatus was removed the sheath was removed and hemostasis was achieved using TR banding patient was transferred to the postop holding in stable condition ANGIOGRAPHIC RESULTS The left main artery Has an ostial 10 to 20% stenosis and a distal 20 to 30% stenosis The left anterior descending artery Has an ostial angiographically ambiguous stenosis proved to be only 30% by IVUS followed by widely patent mid LAD stent followed by severe atherosclerotic plaque distal to the stent with an MLA of 2.2 mm???. The circumflex artery Nondominant with proximal and mid vessel 20 and 30% stenoses. Second obtuse marginal artery has 30% stenosis The right coronary artery Large and dominant with proximal 30% stenoses and mid vessel diffuse 30% stenoses. There is a stent from the mid to distal site which is widely patent with mild in-stent restenosis The MONTEZ ventriculogram reveals Normal 60% The left ventricular end-diastolic pressure 15 mmHg IMPRESSION Coronary artery disease as described above Successful stenting of a severely diseased mid LAD severe disease reduced to 0% with 1 drug-eluting stent Normal ejection fraction Normal LVEDP PLAN 1. Effient 10 mg daily and aspirin 81 mg daily 2. LDL less than 55 to be achieved with high intensity statin 3. Avoidance of tobacco products 4. Risk factor modification 5. Cardiac rehabilitation Electronically signed by : Asad Velasquez MD 01/13/2024 11:52:03
[2024-01-13 08:47] LABS: Basophils # 0.1 K/mm3 (0-0.2); Basophils % 0.7 % (0.1-2.0); Eosinophils % 0.3 % (0.1-12.0); Hematocrit 48.7 % (42.0-52.0); Hemoglobin 16.2 g/dL (14.1-18.0); Lymphocytes # 1.7 K/mm3 (0.7-4.5); Lymphocytes % 18.8 % (10-50); Mean Corpuscular HGB Conc 33.3 g/dL (31.8-35.4); Monocytes # 0.3 K/mm3 (0.1-1.0); Monocytes % 3.6 % (1.7-9.3); Neutrophils # 6.8 K/mm3 (1.8-7.8); Neutrophils % 76.6 % (37.0-80.0); Platelet Count 209 K/mm3 (142-424); Red Blood Count 5.24 M/mm3 (4.60-6.20); Red Cell Distribution Width 13.6 % (11.5-17.5); White Blood Count 8.8 K/mm3 (4.8-10.8)
[2024-01-13 08:58] LABS: Chloride 101 mmol/L (98-107)
[2024-01-13 08:59] LABS: Potassium 4.4 mmoL/L (3.5-5.1); Sodium 133 mmol/L (136-145)
[2024-01-13 09:02] LABS: Anion Gap 17.4 mEq/L (5-15); Blood Urea Nitrogen 20 mg/dl (9-20); Calcium 10.1 mg/dl (8.4-10.2); Carbon Dioxide 19 mmol/L (22.0-30.0); Creatinine Clearance Estimated 86 mL/min (50-200); Estimated Glomerular Filt Rate 83 ml/min (>60); GFR (African American) 101 ML/MIN (>60)
[2024-01-13 09:07] LABS: Glucose 407 mg/dl (74-100)
[2024-01-13] MEDS: humaLOG 100 UNITS/ML 10ML VIAL (SSI) 10 UNIT SQ (09:18)
[2024-01-13 09:57] LABS: POC Glucose,Bedside 333 (70-110)
[2024-01-13] MEDS: diphenhydrAMINE 50MG/ML VIAL 50 MG IV (09:58)
[2024-01-13] MEDS: LIDOCAINE 1% 10ML MDV 20 ML IJ (09:59)
[2024-01-13] MEDS: 0.9 % SODIUM CHLORIDE 500 ML 25 ML IV (09:59)
[2024-01-13] MEDS: HEPARIN 1,000 UNITS/500ML NS (CATH LAB) 3000 UNIT IV (09:59)
[2024-01-13] MEDS: MIDAZOLAM HCL 1MG/1ML 5ML VIAL 1 MG IV (10:05)
[2024-01-13] MEDS: FENTANYL 100MCG/2ML VIAL 50 MCG IV (10:06)
[2024-01-13] MEDS: NITROGLYCERIN 800MCG/8ML SYR (CATH LAB) 800 MCG IA (10:25)
[2024-01-13] MEDS: VERAPAMIL 2.5MG/ML 2ML VIAL 2.5 MG IV (10:25)
[2024-01-13] MEDS: HEPARIN 1,000 UNITS/ML 10ML VIAL (CATH LAB) 10000 UNIT IV (10:25)
[2024-01-13] MEDS: PRASUGREL 10MG TAB 60 MG PO (11:06)
[2024-01-13] MEDS: ASPIRIN 325MG TABLET 325 MG PO (11:06)
[2024-01-13 12:15] LABS: POC Glucose,Bedside 241 (70-110)
[2024-01-13] MEDS: IOPAMIDOL-370 (76%);100ML BOTTLE 150 ML IV (13:07)
[2024-01-13 13:20] LABS: CATHL Activated Clotting Time > 400 SEC (74-125)
== END 2024-01-13 13:48 | disposition home or self-care (01) ==
PROVIDERS: PCP Family Medicine; Visit Provider Internal Medicine
DX: R07.9 Chest pain, unspecified (principal); I25.10 Atherosclerotic heart disease of native coronary artery without angina pectoris; R93.1 Abnormal findings on diagnostic imaging of heart and coronary circulation; R94.31 Abnormal electrocardiogram [ECG] [EKG]; E11.9 Type 2 diabetes mellitus without complications; Z79.84 Long term (current) use of oral hypoglycemic drugs; Z79.899 Other long term (current) drug therapy; F17.210 Nicotine dependence, cigarettes, uncomplicated; I10 Essential (primary) hypertension; Z95.5 Presence of coronary angioplasty implant and graft; I25.83 Coronary atherosclerosis due to lipid rich plaque
CPT/HCPCS: 80048; 82962; 85025; 85347; 92928; 92978; 93458; 99152; 99153; C1725; C1769; C1874; C9600; J1644; Q9967

== ENCOUNTER 2024-10-28 06:14 | Outpatient (CLI) | payer MEDICARE, SELFPAY ==
[2024-10-28] MEDS: SODIUM CHLORIDE 0.9% 10ML SYR (RAD ONLY) 10 ML IV ×2 (06:40→08:15)
--- NOTE | 2024-10-28 06:42 | NM_ITS ---
APPROVED REPORT Exam: Nuclear Stress Test Indication: cad, htn, diabetes, hyperlipidemia, tob use, c.p. Patient Location: Outpatient Stress Tech: Dione Mckeon MT Tech:ZOE Pimentel RT (R)(N)(M) Ht: 5 ft 9 in Wt: 188 lbs HR: 52 bpm BP: 137/86 mmHg BSA: 2.01 m2 TID: 1.22 BMI: 27.7 History: cad, htn, diabetes, hyperlipidemia, tob use, c.p. Procedure: Patient received 0.4 mg of intravenous Lexiscan, resting heart rate 52 bpm, resting blood pressure 137/86 mmHg, with Lexiscan maximum heart rate achieved was 86 bpm which is % of the maximum predicted heart rate and blood pressure was 145/76 mmHg. With Lexiscan, patient denied any complaint of chest pain. Cardiac Stress and Resting SPECT Images: Cardiac Stress and Resting SPECT images were obtained using technetium 99m Myoview 30.5 mCi stress and 10.54 mCi at rest. Resting and stress imaging in supine and prone positions demonstrate a medium sized, moderate, predominantly reversible perfusion defect in the basal inferior LV wall. Gated imaging demonstrates mild reduction global LV systolic function. There is moderate hypokinesis of the inferior LV wall. LVEF is calculated at 47%. Conclusion: Medium sized, moderate, predominantly reversible perfusion defect in the basal inferior LV wall. Findings are suggestive of reversible ischemia. Gated imaging demonstrates mild reduction global LV systolic function. There is moderate hypokinesis of the inferior LV wall. LVEF is calculated at 47%. Electronically signed by : Linda Mittal MD 10/29/2024 00:53:37
--- NOTE | 2024-10-28 07:23 | CA_ITS ---
APPROVED REPORT Exam: Pharmacologic Technologist: Divine Aguilar Ht: 5 ft 9 in Wt: 193 lbs BSA: 2.03 m2 HR: 52 bpm BP: 197/86 mmHg Rhythm: SR Medical History Cardiac Risk Factors: HTN, Hyperlipidemia, Diabetes (non-insulin) Stress Test Details HR Resting HR: 52 bpm Max Heart Rate (APMHR): 149.062675 bpm Target HR (85% APMHR): 126.715809 bpm Recovery HR: 75 bpm BP Resting BP: 137.0/86.0 mmHg Recovery BP: 156.0/88.0 mmHg ECG Resting ECG: SR Stress ECG Conclusion During lexiscan pt experinced no symptoms. No arrhythmias noted. No ST changes noted. Electronically signed by : Linda Mittal MD 11/01/2024 21:19:02
[2024-10-28] MEDS: REGADENOSON 0.4MG/5ML SYRINGE 0.4 MG IV (08:15)
[2024-10-28] MEDS: ISOTOPE MYOVIEW (PER STUDY) 1 DOSE IV (10:02)
== END 2024-10-28 23:59 | disposition home or self-care (01) ==
PROVIDERS: PCP Family Medicine; Visit Provider Internal Medicine
DX: I25.10 Atherosclerotic heart disease of native coronary artery without angina pectoris (principal); R07.9 Chest pain, unspecified
CPT/HCPCS: 78452; 93017; 93018; A9502; J2785

== ENCOUNTER 2024-11-02 10:37 | Outpatient (CLI) | payer MEDICARE, SELFPAY ==
[2024-11-02 11:14] LABS: Basophils % 0.3 % (0.1-2.0); Eosinophils % 0.3 % (0.1-12.0); Hematocrit 42.2 % (42.0-52.0); Hemoglobin 13.9 g/dL (14.1-18.0); Mean Corpuscular HGB Conc 32.9 g/dL (31.8-35.4); Mean Corpuscular Hemoglobin 29.9 pg (27.0-31.2); Mean Corpuscular Volume 90.8 fl (80-94); Mean Platelet Volume 9.7 fl (7.4-10.4); Monocytes # 0.5 K/mm3 (0.1-1.0); Monocytes % 7.5 % (1.7-9.3); Neutrophils # 4.3 K/mm3 (1.8-7.8); Neutrophils % 62.6 % (37.0-80.0); Platelet Count 253 K/mm3 (142-424); Red Blood Count 4.65 M/mm3 (4.60-6.20); Red Cell Distribution Width 13.2 % (11.5-17.5); White Blood Count 6.8 K/mm3 (4.8-10.8)
[2024-11-02 11:33] LABS: Alanine Aminotransferase 24 U/L (12-78); Albumin Level 4.4 g/dl (3.5-5.0); Alkaline Phosphatase 63 U/L (38-126); Anion Gap 10.4 mEq/L (5-15); Aspartate Amino Transferase 24 U/L (17-59); Bilirubin,Direct 0.2 mg/dl (0.0-0.4); Bilirubin,Indirect 0.4 mg/dL (0.0-0.9); Bilirubin,Total 0.6 mg/dl (0.2-1.3); Bilirubin,Unconjugated 0.4 mg/dL (0.0-1.1); Blood Urea Nitrogen 15 mg/dl (9-20); Calcium 11.1 mg/dl (8.4-10.2); Carbon Dioxide 24 mmol/L (22.0-30.0); Chloride 108 mmol/L (98-107); Chol/HDL Ratio 2.7 (1-3.5); Cholesterol 149 mg/dl (140-200); Estimated Glomerular Filt Rate 111 ml/min (>60); GFR (African American) 135 ML/MIN (>60); Glucose 80 mg/dl (74-100); HDL Cholesterol 55 mg/dl (40-60); Potassium 4.4 mmoL/L (3.5-5.1); Sodium 138 mmol/L (136-145); Total Protein,Serum 6.6 g/dl (6.3-8.2); Triglycerides 102 mg/dl (30-150); VLDL Cholesterol 20 mg/dL (0-40)
[2024-11-02 11:44] LABS: Direct LDL Cholesterol 66.81 mg/dL (100-129)
[2024-11-02 11:52] LABS: Free T4 (Free Thyroxine) 1.12 ng/dl (0.78-2.19)
[2024-11-02 12:06] LABS: Thyroid Stimulating Hormone 2.56 uIU/mL (0.465-4.68)
[2024-11-02 14:14] LABS: Hemoglobin A1C 6.5 % (4.0-6.0)
== END 2024-11-02 23:59 | disposition home or self-care (01) ==
LOC: LAB 10:38
PROVIDERS: PCP Family Medicine; Visit Provider Physician Assistant
DX: I10 Essential (primary) hypertension (principal); I25.10 Atherosclerotic heart disease of native coronary artery without angina pectoris; E11.69 Type 2 diabetes mellitus with other specified complication; E78.5 Hyperlipidemia, unspecified
CPT/HCPCS: 36415; 80048; 80061; 80076; 83036; 84439; 84443; 85025